=== PATIENT | female | born 1955 | race Caucasian/White ===

== ENCOUNTER 2019-06-23 13:50 | Outpatient (CLI) | payer MEDICARE, OTHER ==
[~2019-06-23 13:50] MED LIST: BUPIVACAINE HCL 0.5% (5MG/ML) PF 10ML VIAL IV ONE; IOHEXOL 300 MG/ML BOTTLE 50 ML ONE; Lidocaine 1% 5ml 10 MG/ML VIAL ONE; methylPREDNISolone ACETATE 40 MG/ML VIAL IM ONE
== END 2019-06-23 14:50 | disposition home or self-care (01) ==
LOC: OUT 13:50
PROVIDERS: ATTEND Physical Medicine & Rehabilitation Pain Medicine
DX: M46.1 Sacroiliitis, not elsewhere classified (principal); M47.818 Spondylosis without myelopathy or radiculopathy, sacral and sacrococcygeal region; M54.5 Low back pain
CPT/HCPCS: 27096; J1030; J3490; G0260